=== PATIENT | male | born 1980 | race Caucasian/White ===

== ENCOUNTER 2021-08-04 03:46 | Emergency (ER) | payer MEDICAID, SELFPAY ==
[2021-08-04 03:57] VITALS: BP 141/76; PULSE 88; RESP 15; TEMP 36.1; O2SAT 97; BMI 30.7
--- NOTE | 2021-08-04 04:37 | PC.NURSE ---
Ambulating in hallway with steady gait.
--- NOTE | 2021-08-04 06:15 | ED.GENADULT ---
HPI - General Adult General Chief complaint: ETOH/Substance Use Stated complaint: drug relapse Time Seen by Provider: 08/04/21 06:15 Source: patient Mode of arrival: ambulatory History of Present Illness HPI narrative: 40-year-old male with history of substance use and relapsed yesterday and is attempting to get in to [facility]. He otherwise has no other acute complaints and wanted to come into the emergency room to prevent himself from using drugs prior to going into detox. Related Data Allergies Allergy/AdvReac Type Severity Reaction Status Date / Time amoxicillin [AMOXICILLIN] Allergy Unknown NAUSEA & Unverified 08/09/20 18:22 VOMITING codeine [CODEINE] Allergy Unknown NAUSEA & Unverified 08/09/20 18:22 VOMITING hydrocodone [Vicodin] Allergy Unknown Verified 02/23/13 00:00 penicillin V Allergy Unknown Verified 02/23/13 00:00 Penicillins [PENICILLINS] Allergy Unknown NAUSEA & Unverified 08/09/20 18:22 VOMITING acetaminophen [From VICODIN] AdvReac Unknown NAUSEA & Unverified 08/09/20 18:22 VOMITING From VICODIN AdvReac Unknown NAUSEA & Uncoded 08/09/20 18:22 VOMITING Review of Systems Review of Systems: Pertinent positives and negatives as stated in HPI 10 point review of systems is otherwise negative. [facility] Past Medical History Source: nursing notes reviewed Social History Social History Advance Directives: No Physical Exam Vital Signs: Vital Signs: Last Vital Signs Temp 97.0 F 08/04/21 03:57 Pulse 88 08/04/21 03:57 Resp 15 08/04/21 03:57 BP 141/76 H 08/04/21 03:57 Pulse Ox 97 08/04/21 03:57 Body Mass Index 30.7 VITAL SIGNS: Reviewed. GENERAL: Well developed, well nourished, in no acute distress. HEAD: Normocephalic/atraumatic EYES: PERRLA, EOMI OROPHARYNX: no oral lesions noted, posterior pharynx clear LUNGS: Normal breath sounds. SpO2<97> CARDIOVASCULAR: Regular rate and rhythm without noted murmurs ABDOMEN: Soft, non-tender, non-distended with bowel sounds. SKIN: Inspection of the skin reveals no rashes NEUROLOGIC: Alert and oriented x 4. Course Course Course Narrative: 40-year-old male with history of IV drug use, and states that he relapsed. He has made a call to [facility] and and his father will be transporting him to [facility]. He is otherwise stable for discharge. Discharge Plan Discharge Clinical Impression: Substance abuse Patient Disposition: Home, Self-Care Instructions: Polysubstance Abuse (ED) Additional Instructions: Return to the ER for acute worsening of symptoms. Referrals: Physician,None [Primary Care Provider] - 2 days
== END 2021-08-04 06:28 | disposition home or self-care (01) ==
PROVIDERS: Emergency Provider Student in an Organized Health Care Education/Training Program
DX: F11.19 Opioid abuse with unspecified opioid-induced disorder (principal); Z79.899 Other long term (current) drug therapy; Z71.51 Drug abuse counseling and surveillance of drug abuser
CPT/HCPCS: 99283